=== PATIENT | female | born 1975 | race Caucasian/White ===

== ENCOUNTER 2020-12-29 23:16 | Emergency (ER) | payer OTHER ==
[~2020-12-29] VITALS: Ht 165.1 cm; Wt 79.4 kg
[~2020-12-29 23:16] MED LIST: CYCL10 PO; HYDACE5 PO; NICO14TP TOP; Norco 5-325 Ta1 EACH PO; ZOLM2.5 PO
== END 2020-12-30 00:48 | disposition home or self-care (01) ==
LOC: ER 23:16
DX: M71.21 Synovial cyst of popliteal space [Baker], right knee (principal); F17.200 Nicotine dependence, unspecified, uncomplicated; Z88.2 Allergy status to sulfonamides; Z79.899 Other long term (current) drug therapy
CPT/HCPCS: 93971; 99283-25; A9270